=== PATIENT | female | born 1995 | race Caucasian/White ===

== ENCOUNTER 2022-06-25 11:50 | Emergency (ER) | payer OTHER, SELFPAY ==
[2022-06-25 11:55] VITALS: BP 119/66; PULSE 107; RESP 18; TEMP 36.1; O2SAT 100
[2022-06-25 12:15] LABS: Basophils Percent Auto 0.5 % (0.2-1.2); Eosinophils Percent Auto 0.5 % (0-4.4); Hematocrit 28.5 % (37.0-47.0); Hemoglobin 10.8 g/dL (12.0-15.0); Immature Granulocyte Absolute 0.03 K/mm3 (0.00-0.031); Immature Granulocyte Percent A 0.5 % (0-0.5); Lymphocytes Absolute Auto 0.55 K/mm3 (0.9-3.2); Lymphocytes Percent Auto 9.3 % (18.3-44.2); Mean Corpuscular HGB Conc 37.9 g/dl (32-36); Mean Corpuscular Hemoglobin 33.5 pg (26-34); Mean Corpuscular Volume 88.5 fl (80-100); Mean Platelet Volume 9.2 fl (7.4-10.4); Monocytes Absolute Auto 0.3 K/mm3 (0.1-0.6); Monocytes Percent Auto 4.9 % (2.6-8.5); Neutrophils Percent Auto 84.3 % (45.5-73.1); Platelet Count Result 195 k/mm3 (150-375); Red Blood Count 3.22 M/mm3 (4.2-5.4); Red Cell Distribution Width 14.1 % (11.5-14.5); White Blood Count 5.9 K/mm3 (4.5-10.0)
[2022-06-25 12:26] LABS: Alanine Aminotransferase 15 U/L (6-35); Albumin Level 4.3 g/dL (3.5-5.1); Alkaline Phosphatase 51 U/L (38-126); Anion Gap 9 mmol/L (8-16); Aspartate Amino Transferase 18 U/L (14-36); Bilirubin,Total 1.7 mg/dL (0.2-1.3); Blood Urea Nitrogen 7 mg/dL (7-17); Carbon Dioxide 22 mmol/L (22-30); Chloride 103 mmol/L (98-107); Estimated CRCL calculation 133 ml/min; Estimated Glomerular Filt Rate > 60; Glucose 103 mg/dL (65-110); Lipase 35 U/L (23-300); Potassium 3.6 mmol/L (3.4-5.0); Sodium 134 mmol/L (137-145)
[2022-06-25 12:32] LABS: Add Urine Microscopic? YES; Appearance Urine Cloudy (Clear); Bilirubin Urine 2+ (Negative); Blood Urine Trace-lysed (Negative); Color Urine Orange (Yellow); Glucose Urine UA Negative (Negative); Ketones Urine 2+ mg/dL (Negative); Leukocyte Esterase Ur Negative LEU/UL (Negative); Nitrate Urine Positive (Negative); Protein Urine 1+ mg/dL (Negative); Specific Grav Ur 1.025 (1.001-1.035); pH Urine 5.5 (5.0-9.0)
[2022-06-25 12:43] LABS: Bacteria Urine 2+ /hpf; Mucus Urine Heavy /lpf; Squamous Epithelial Cell Urine Many /hpf (Few)
[2022-06-25] MEDS: SODIUM CHLORIDE 0.9% IV 1,000 ML 999 ML IV CONT (13:59)
[2022-06-25] MEDS: diphenhydrAMINE HCl INJ 50 MG/ML VIAL 25 MG IV PUSH (13:59)
[2022-06-25] MEDS: METOCLOPRAMIDE HCL INJ 10 MG/2 ML VIAL IV PUSH (14:00)
--- NOTE | 2022-06-25 14:11 | ED.NAVMDI ---
HPI - Nausea/Vomiting/Diarrhea General Chief complaint: Nausea/Vomiting/Diarrhea Stated complaint: 11 weeks , N/V Time Seen by Provider: 06/25/22 13:46 History of Present Illness HPI Narrative: 26-year-old female who is 11 weeks presents to the emergency room for evaluation of nausea vomiting for 4 weeks. Patient states the vomiting has worsened in the last 3 days. Has been on Compazine and Zofran with little relief of symptoms. Patient is a . States emesis is nonbloody and none bilious. Denies diarrhea constipation. Denies fevers. Reports abdominal cramping that is associated with vomiting. Related Data Home Medications Medication Instructions Recorded Confirmed ondansetron 4 mg disintegrating mg 06/25/22 06/25/22 tablet promethazine 25 mg tablet mg 06/25/22 Allergies Allergy/AdvReac Type Severity Reaction Status Date / Time Sulfa (Sulfonamide Allergy Unknown Verified 11/22/11 07:49 Antibiotics) Review of Systems Review of Systems: CONSTITUTIONAL: Denies fever, chills, or sweats. EYES: Denies visual changes, redness, or discharge. ENT: Denies rhinorrhea, congestion, sore throat, or otalgia. CARDIOVASCULAR: Denies chest pain, palpitations, or edema. RESPIRATORY: Denies cough or dyspnea. GASTROINTESTINAL: Denies abdominal pain, nausea, vomiting, or diarrhea. GENITOURINARY: Denies dysuria or hematuria. SKIN: Denies rash or itching. MUSCULOSKELETAL: Denies back pain, joint pain, or myalgia. NEUROLOGIC: Denies headache, numbness, dizziness, or weakness. PSYCHIATRIC: Denies anxiety or depression. PMFSH Family History Family History Grandparent Diabetes mellitus Social History Social History Smoking status: Never smoker Second hand tobacco smoke exposure: Yes Alcohol intake: never Exam Narrative: GENERAL: Well-appearing, well-nourished, no physical limitations, and in no acute distress. HEAD: Normocephalic, atraumatic. EYES: Conjunctivae normal, PERRLA and EOMI. ENT: Mucous membranes dry. CHEST: Clear to auscultation. No respiratory distress. No wheezes rales or rhonchi. No tenderness. ABDOMEN: Soft, nontender, nondistended, normal active bowel sounds. BACK: No CVA tenderness EXTREMITIES: Normal range of motion. No edema. No clubbing or cyanosis SKIN: Warm, dry, no rash. No noted wounds NEURO: No focal deficits. Alert and oriented x3. MAEW. CN's II-XI intact bilaterally, normal gait PSYCH: Cooperative. Normal mood and affect. Course Vital Signs Vital signs: Vital Signs Temperature 36.1 C L 06/25/22 11:55 Pulse Rate 107 H 06/25/22 11:55 Respiratory Rate 18 06/25/22 11:55 Blood Pressure 119/66 06/25/22 11:55 Pulse Oximetry 100 06/25/22 11:55 Oxygen Delivery Room Air 06/25/22 11:55 Temperature 36.1 C L 06/25/22 11:55 Pulse Rate 107 H 06/25/22 11:55 Respiratory Rate 18 06/25/22 11:55 Blood Pressure 119/66 06/25/22 11:55 Pulse Oximetry 100 06/25/22 11:55 Oxygen Delivery Room Air 06/25/22 11:55 MDM - Nausea/Vomiting/Diarrhea Lab Data Result diagrams: 06/25/22 11:59 06/25/22 11:59 Labs: Lab Results 06/25/22 06/25/22 06/25/22 Range/Units 11:59 11:59 12:04 WBC 5.9 (4.5-10.0) K/mm3 RBC 3.22 L (4.2-5.4) M/mm3 Hgb 10.8 L (12.0-15.0) g/dL Hct 28.5 L (37.0-47.0) % MCV 88.5 (80-100) fl MCH 33.5 (26-34) pg MCHC 37.9 H (32-36) g/dl RDW 14.1 (11.5-14.5) % Plt Count 195 (150-375) k/mm3 MPV 9.2 (7.4-10.4) fl Immature Gran % (Auto) 0.5 (0-0.5) % Neut % (Auto) 84.3 H (45.5-73.1) % Lymph % (Auto) 9.3 L (18.3-44.2) % [place] % (Auto) 4.9 (2.6-8.5) % Eos % (Auto) 0.5 (0-4.4) % Baso % (Auto) 0.5 (0.2-1.2) % Lymph # (Auto) 0.55 L (0.9-3.2) K/mm3 [place] # (Auto) 0.3 (0.1-0.6) K/mm3 Eos # (Auto) 0.0 (0
[2022-06-25 15:14] VITALS: BP 116/64; PULSE 98; RESP 16; O2SAT 100
== END 2022-06-25 15:15 | disposition home or self-care (01) ==
PROVIDERS: Emergency Medicine; Emergency Provider Nurse Practitioner Family
DX: O21.0 Mild hyperemesis gravidarum (principal); Z3A.11 11 weeks gestation of pregnancy; O23.41 Unspecified infection of urinary tract in pregnancy, first trimester; N39.0 Urinary tract infection, site not specified
CPT/HCPCS: 36415; 80053; 81001; 83690; 85025; 96361; 96365; 96375; 99284; J0696; J1200; J2765; J7030

== ENCOUNTER 2023-01-10 16:35 | Outpatient (CLI) | payer OTHER, SELFPAY ==
[2023-01-10 17:08] LABS: Basophils Percent Auto 0.5 % (0.2-1.2); Eosinophils Absolute Auto 0.1 K/mm3 (0-0.3); Eosinophils Percent Auto 0.6 % (0-4.4); Hematocrit 30.1 % (37.0-47.0); Hemoglobin 10.7 g/dL (12.0-15.0); Immature Granulocyte Absolute 0.05 K/mm3 (0.00-0.031); Immature Granulocyte Percent A 0.6 % (0-0.5); Lymphocytes Absolute Auto 0.78 K/mm3 (0.9-3.2); Lymphocytes Percent Auto 10.1 % (18.3-44.2); Mean Corpuscular HGB Conc 35.5 g/dl (32-36); Mean Corpuscular Hemoglobin 34.6 pg (26-34); Mean Corpuscular Volume 97.4 fl (80-100); Mean Platelet Volume 9.5 fl (7.4-10.4); Monocytes Absolute Auto 0.5 K/mm3 (0.1-0.6); Neutrophils Absolute Auto 6.3 K/mm3 (1.3-6.7); Neutrophils Percent Auto 82.2 % (45.5-73.1); Platelet Count Result 161 k/mm3 (150-375); Red Blood Count 3.09 M/mm3 (4.2-5.4); Red Cell Distribution Width 15.9 % (11.5-14.5); White Blood Count 7.7 K/mm3 (4.5-10.0)
[2023-01-11 11:21] LABS: Rapid Plasma Reagin Non-Reactive (NonReactive)
== END 2023-01-10 16:36 | disposition home or self-care (01) ==
LOC: ANHLAB 16:39
PROVIDERS: Visit Provider Obstetrics & Gynecology
DX: Z34.93 Encounter for supervision of normal pregnancy, unspecified, third trimester (principal); Z3A.00 Weeks of gestation of pregnancy not specified
CPT/HCPCS: 36415; 85025; 85461; 86592; 86850; 86900; 86901

== ENCOUNTER 2023-01-11 04:59 | Inpatient (IN) | payer OTHER, SELFPAY ==
--- NOTE | 2022-12-18 15:51 | PC.NURSE ---
verified with OR schedule and patient--C/S on 01/11/23 @ [id number] Patient given requisition for lab draw on 01/10/23
[2023-01-11] VITALS (44 sets, daily range): BP systolic 71–113; BP diastolic 50–93; PULSE 64–131; RESP 14–18; TEMP 36.4–36.6; O2SAT 96–100; BMI 26.9
--- NOTE | 2023-01-11 04:42 | P.PNAN_ITS ---
Anes - Eval Pre Procedure Procedure: Operation Date: 01/11/23 07:30 Proposed Procedures p Section - Vernell Sharma MD Date/Time: 01/11/23 04:42 Surgeon: Zachary Preop Diagnosis: Previous c section Pre Op Diagnosis: C/S Patient Data Age: 27 Gender: F Height: Weight: Allergies Allergy/AdvReac Type Severity Reaction Status Date / Time Sulfa (Sulfonamide Allergy Unknown Verified 11/22/11 07:49 Antibiotics) Home Medications Medication Instructions Recorded Confirmed Type cephalexin 500 mg capsule 500 mg PO Q12H 7 days #14 caps 06/25/22 Rx ondansetron 4 mg disintegrating mg 06/25/22 06/25/22 History tablet promethazine 25 mg tablet mg 06/25/22 History Patient hx anesthesia problems: none Family hx anesthesia problems: none Results Review: All pre-operative results and documents have been reviewed as part of the pre- operative evaluation. FORMERLY [facility] Past Medical History Medical History Cannabis abuse and not yet delivered Surgical History Surgical History Previous section Family History Family History Grandparent Diabetes mellitus Social History Social History Smoking status: Never smoker Second hand tobacco smoke exposure: Yes Alcohol intake: never Substance use: current Lack of Transportation: No Lack of Food: Never True Current Housing: I Have Housing Concerned About Future Housing: No Difficulty Paying Gas/Electric Bills: No Difficulty Paying for Meds: No Currently Unemployed: YES Education: High School Diploma/GED Difficulty w/ Childcare or Family Care: No Spiritual care concerns: No Exam Day of Procedure 01/11/23 04:42 Patient weight: overweight Heart: regular rate and rhythm Lungs: clear to auscultation Airway: Mallampati scale class II
--- NOTE | 2023-01-11 05:22 | LDADM ---
This patient, Yvonne Rodriguez, was admitted to Labor/Delivery/Recovery 120 on 01/11/23 at 04:59. Plans for labor, pain management and were discussed with patient. Patient/family oriented to hospital policies and general routines including ID bracelet, bed and alarms, visiting hours, pain management, procedures, bathroom and other care routines, personal items, smoking policy, room service/diet and guest tray routines, security routines, and visiting hours. Patient/Family are encouraged to report perceived risks to care and to ask questions if they do not understand what they are told or what they should do. See OBIX for further documentation.
[2023-01-11] MEDS: LACTATED RINGERS 1,000 ML 125 ML IV CONT (05:31)
--- NOTE | 2023-01-11 06:52 | PM.IMHP ---
H&P: HPI History of Present Illness Date/Time: 01/11/23 06:52 Chief Complaint: R CS Narrative: Yvonne is a 27yo at 39.1 for Repeat Cs. This has been complicated by IUGR, normal fluid, dopplers, and testing. GBS pos. some anemia. Feels well today, no complaints. Review of Systems Review of Systems: All systems reviewed & are unremarkable except as noted in HPI and below PMFSH Past Medical History Medical History Cannabis abuse and not yet delivered Surgical History Surgical History Previous section Family History Family History Grandparent Diabetes mellitus Social History Social History Smoking status: Never smoker Second hand tobacco smoke exposure: Yes Alcohol intake: never Substance use: current Lack of Transportation: No Lack of Food: Never True Current Housing: I Have Housing Concerned About Future Housing: No Difficulty Paying Gas/Electric Bills: No Difficulty Paying for Meds: No Currently Unemployed: YES Education: High School Diploma/GED Difficulty w/ Childcare or Family Care: No Spiritual care concerns: No Meds Home Medications and Allergies Home Medications Medication Instructions Recorded Confirmed Type cephalexin 500 mg capsule 500 mg PO Q12H 7 days #14 caps 06/25/22 Rx ondansetron 4 mg disintegrating mg 06/25/22 06/25/22 History tablet promethazine 25 mg tablet mg 06/25/22 History Allergies Allergy/AdvReac Type Severity Reaction Status Date / Time Sulfa (Sulfonamide Allergy Unknown Verified 11/22/11 07:49 Antibiotics) Vital Signs Vital Signs - 24 hr 01/11/23 05:16 01/11/23 05:31 01/11/23 05:46 Pulse Rate 93 86 84 Blood Pressure 108/72 113/66 94/53 L 01/11/23 06:01 01/11/23 06:16 Pulse Rate 93 81 Blood Pressure 71/52 L 111/63 Exam Const: General: no acute distress Resp: Effort & Inspection: normal respiratory effort Auscultation: clear to auscultation bilaterally Cardio: Rate: regular rate Rhythm: regular rhythm GI: GI Palp: Yes Soft to palpation Extrem: General: normal to inspection Assessment and Plan Assessment and plan (1) History of delivery: Code(s): Z98.891 - History of uterine scar from previous surgery Status: Acute (2) IUGR (intrauterine growth restriction): Status: Acute Plan consented for repeat CS fht category 1 IUGR with reassuring testing throughout will proceed
--- NOTE | 2023-01-11 06:55 | WPDHPUPDATE1 ---
History and Physical Update Update Date/Time: 01/11/23 06:55 History and Physical has been reviewed, including an updated exam of the patient. There are NO changes in the patient's condition. Risks, benefits, and alternatives have been discussed and questions answered. Patient agrees to proceed with procedure.
[2023-01-11] MEDS: LACTATED RINGERS 1,000 ML 999 ML IV CONT (07:00)
--- NOTE | 2023-01-11 07:01 | WPDANESEPPF ---
Anes - Initial Pre Proc Eval Procedure: Operation Date: 01/11/23 07:30 Proposed Procedures p Section - Vernell Sharma MD Date/Time: 01/11/23 07:01 Surgeon: Vernell Sharma MD Pre Op Diagnosis: C/S Patient Data Age: 27 Gender: F Height: 1.7 m Weight: 78 kg Last Vital Signs Pulse 81 01/11/23 06:16 BP 111/63 01/11/23 06:16 Allergies Allergy/AdvReac Type Severity Reaction Status Date / Time Sulfa (Sulfonamide Allergy Unknown Verified 11/22/11 07:49 Antibiotics) Home Medications Medication Instructions Recorded Confirmed Type cephalexin 500 mg capsule 500 mg PO Q12H 7 days #14 caps 06/25/22 Rx ondansetron 4 mg disintegrating mg 06/25/22 06/25/22 History tablet promethazine 25 mg tablet mg 06/25/22 History Patient hx anesthesia problems: none Family hx anesthesia problems: none Results Review: All pre-operative results and documents have been reviewed as part of the pre-operative evaluation. [facility] Past Medical History Medical History Cannabis abuse and not yet delivered Surgical History Surgical History Previous section Family History Family History Grandparent Diabetes mellitus Social History Social History Smoking status: Never smoker Second hand tobacco smoke exposure: Yes Alcohol intake: never Substance use: current Lack of Transportation: No Lack of Food: Never True Current Housing: I Have Housing Concerned About Future Housing: No Difficulty Paying Gas/Electric Bills: No Difficulty Paying for Meds: No Currently Unemployed: YES Education: High School Diploma/GED Difficulty w/ Childcare or Family Care: No Spiritual care concerns: No Anes - Eval Final PreProcedure Day of Procedure 01/11/23 07:01 Patient weight: overweight Heart: regular rate and rhythm Lungs: clear to auscultation and normal air movement Airway: Mallampati scale class II Neurological: alert and oriented Last oral intake: >/= 8 hours ASA classification: II Emergent: no Anesthetic plan: proceed Anesthesia type and monitoring: regional spinal Results Review: All pre-operative results and documents have been reviewed as part of the pre-operative evaluation. Informed Consent: The patient's anesthetic plan and its attendant risks and benefits were discussed with the patient/family/POA. Questions were solicited and answers provided to the satisfaction of the patient/family/POA.
[2023-01-11] MEDS: ceFAZolin 2 GM/D5W 50 ML 2 GM/50 ML BAG IVPB (07:04)
--- NOTE | 2023-01-11 08:09 | PM.OBPRVD ---
OB - Delivery Note Procedure Delivery date: 01/11/23 Procedure: Procedures Operation Date: 01/11/23 07:30 <No data on this case meets the specified criteria> repeat low transverse section Events: Breech Presentation, Intrauterine Growth Restriction (IUGR) and Previous Delivery Route of delivery: Specimen: Yes (placenta) Quantitative Blood Loss (ml): 350 Anesthesia type: Spinal Disposition: Floor Complications: none Narrative: The patient was taken to the OR and received spinal anesthesia. She was placed in dorsal supine position with left lateral tilt. SCDs and burks were placed. She was prepped and draped in the normal sterile fashion. A Pfannensteil skin incision was made and carried through to the underlying layer of fascia. The fascia was incised in the midline and then extended laterally using Mejía scissors. The muscles were in the midline and the peritoneum was entered bluntly. The peritoneal incision was extended inferiorly and superiorly with care to avoid the bladder. The bladder blade was then inserted, the vesicouterine peritoneum was grasped, incised with Metzenbaum scissors, and a bladder flap created. The bladder blade was reinserted. A low transverse uterine incision was made with a scalpel and extended bluntly. AROM was performed and fluid was noted to be clear. The baby was delivered easily from breech presentation in normal fashion. The baby's oropharynx was suctioned. After 30 seconds, the cord was clamped and cut and the was handed off. Cord blood was obtained and the placenta was then removed manually. The uterus was exteriorized. A moist lap sponge was used to curette the endometrium. The uterine incision was then closed with one layer of 0-Vicryl in a running, locking fashion. Good hemostasis was noted. The posterior cul de sac was irrigated with normal saline and cleared of all clot and debris. The uterus was returned to the abdomen. Both lateral gutters were then irrigated. The rectus muscles were inspected and found to be hemostatic. The fascia was reapproximated using 0-Vicryl in running fashion. The subcutaneous tissue was irrigated with normal saline and made hemostatic with Bovie electrocautery. The skin was then closed with reabsorbable lauryn. Steri strips and a bandage were applied. The uterus was evacuated. The patient tolerated the procedure very well. All counts were correct. She was taken to the recovery room in good condition. Baby Date of : 01/11/23 Time of : 07:34 Weeks of gestation at delivery: 39 Infant gender: Female Weight (pounds): 5 Weight (ounces): 14 presentation: breech Placenta delivery description: Manual Removal Cord Vessel Description: 3 Vessels and Delayed Cord Clamping score one minute: 9 score five minutes: 9
[2023-01-11] MEDS: ONDANSETRON INJ 4 MG/2 ML VIAL IV PUSH ×2 (08:55→10:50)
[2023-01-11] MEDS: OXYTOCIN 30 UNITS/NS 500 ML 30 UNITS/500 ML BAG 125 UNITS IV CONT (09:15)
[2023-01-11] MEDS: LIDOCAINE 5% PATCH 1 PATCH TRANSDERM (09:31)
[2023-01-11] MEDS: MORPHINE SULFATE INJ (*CRX) 10 MG/ML AMP 2 MG IV PUSH ×3 (09:36→10:09)
[2023-01-11] MEDS: KETOROLAC 30 MG/ML VIAL (*BKC) IV PUSH (10:50)
--- NOTE | 2023-01-11 16:01 | PC.NURSE ---
[id number] Introductions were made, then consulted with patient to assess needs related to . Mother led the conversation with her?plans to feed?her infant and the?experience so far. Primary RN is present assisting mother with hand expression. Mother consents for assistance with RN. We practiced hand expression and fed the the drops of colostrum. Mother works well with her with encouragement and education. Encouraged understanding of the benefits of skin to skin (demonstrating unwrapping and placing upright on her chest), stimulating with massage touch, changing positions to encourage wakefulness, how to watch for early feeding cues, responsive feeding, feeding on demand (aiming for 8-12 times in 24 hours, about every 2-3 hours), milk production, building/maintaining a milk supply, duration of feeding, signs of adequate intake/output and how to record on the feeding sheet. Reviewed positioning and ear, shoulder, hip alignment, supporting the breast to facilitate a deep latch, asymmetrical latch (off-center), leading with the chin with a big, open, wide gape and body close to mother. Infant latched optimally to the left breast in football position. Education given to mother of how to visualize suck/swallow ratios and listen for drinking at the breast. Infant was able to maintain latch without discomfort to mother. Nipple care reviewed with optimal latch and good positioning. Reviewed good handwashing when or touching the breast/nipples to prevent infection. Resources used to facilitate learning were used with the tool, mom and baby guide. Mother voiced understanding of skin to skin, stimulating with massage touch, responsive feedings, hand expressed colostrum, talking to to encourage if it has been 2 -2.5 hours since the start of the last , to call if does not latch, or if there is discomfort with . Resources provided for inpatient/outpatient with the feeding sheet and the mom/baby guide. Parents voiced understanding of information, demonstrated learning and will call if there is a request for assistance. Resources provided for inpatient and outpatient services with the feeding sheet, mom/baby guide and name written on the white board. Reported to the primary RN.
[2023-01-11] MEDS: HYDROcodone/acetaminophen (*CRX) 5-325 MG TABLET 1 TAB PO ×2 (17:08→21:00)
[2023-01-11] MEDS: DEXTROSE 5%/0.45% SOD CHL 1,000 ML 125 ML IV CONT (17:09)
[2023-01-11] MEDS: IBUPROFEN 600 MG TABLET PO (21:00)
[2023-01-12 04:10] VITALS: BP 102/59; PULSE 76; RESP 16; TEMP 36.9; O2SAT 99
[2023-01-12] MEDS: HYDROcodone/acetaminophen (*CRX) 10-325 MG TABLET 1 TAB PO ×6 (04:10→22:20)
[2023-01-12] MEDS: IBUPROFEN 600 MG TABLET PO ×4 (04:10→22:20)
[2023-01-12 05:30] LABS: Basophils Percent Auto 0.6 % (0.2-1.2); Eosinophils Absolute Auto 0.1 K/mm3 (0-0.3); Eosinophils Percent Auto 1.2 % (0-4.4); Hematocrit 26.3 % (37.0-47.0); Hemoglobin 9.3 g/dL (12.0-15.0); Immature Granulocyte Absolute 0.06 K/mm3 (0.00-0.031); Immature Granulocyte Percent A 0.9 % (0-0.5); Lymphocytes Absolute Auto 0.89 K/mm3 (0.9-3.2); Lymphocytes Percent Auto 12.8 % (18.3-44.2); Mean Corpuscular HGB Conc 35.4 g/dl (32-36); Mean Corpuscular Hemoglobin 35.1 pg (26-34); Mean Corpuscular Volume 99.2 fl (80-100); Mean Platelet Volume 9.7 fl (7.4-10.4); Monocytes Absolute Auto 0.5 K/mm3 (0.1-0.6); Monocytes Percent Auto 6.6 % (2.6-8.5); Neutrophils Absolute Auto 5.4 K/mm3 (1.3-6.7); Neutrophils Percent Auto 77.9 % (45.5-73.1); Platelet Count Result 120 k/mm3 (150-375); Red Blood Count 2.65 M/mm3 (4.2-5.4); Red Cell Distribution Width 15.8 % (11.5-14.5)
[2023-01-12] MEDS: DOCUSATE SODIUM 100 MG CAPSULE PO ×2 (08:48→17:09)
[2023-01-12] MEDS: POLYSACCHARIDE IRON COMPLEX 150 MG CAPSULE PO ×2 (08:48→19:25)
[2023-01-12] MEDS: MULTIVIT/MIN/PREN/FOL AC/IRON TABLET 1 TAB PO (09:00)
[2023-01-12] MEDS: LIDOCAINE 5% PATCH 1 PATCH TRANSDERM (09:48)
[2023-01-12] MEDS: SIMETHICONE 80 MG TAB.CHEW PO ×2 (09:48→16:08)
--- NOTE | 2023-01-12 10:45 | P.PNOB_ITS ---
OB - PN: Subj Subjective Date/time seen: 01/12/23 10:45 Patient comments: no complaints, pain well controlled, tolerating diet and flatus present OB - PN: Obj Data Labs 01/12/23 04:51 Labs: Laboratory Results - last 24 hr 01/12/23 04:51 WBC 7.0 RBC 2.65 L Hgb 9.3 L Hct 26.3 L MCV 99.2 MCH 35.1 H MCHC 35.4 RDW 15.8 H Plt Count 120 L MPV 9.7 Immature Gran % (Auto) 0.9 H Neut % (Auto) 77.9 H Lymph % (Auto) 12.8 L [place] % (Auto) 6.6 Eos % (Auto) 1.2 Baso % (Auto) 0.6 Lymph # (Auto) 0.89 L [place] # (Auto) 0.5 Eos # (Auto) 0.1 Baso # (Auto) 0.0 Abs Immat Gran (auto) 0.06 H Absolute Neuts (auto) 5.4 Absolute Nucleated RBC 0.0 Nucleated RBC % 0.0 OB - PN A/P Plan day: 1 Comments: Post Op LTCS - no problems, routine recovery Time Spent With Patient Time: Total time spent is greater than 50% in coordination of care (as documented) at patient's floor/unit and/or counseling patient: Exam Const: General: cooperative, healthy appearing, comfortable and no acute distress Resp: Auscultation: no crackles, no rales, no rhonchi and no wheezes Cardio: Rhythm: regular rhythm Heart sounds: no click and no murmurs GI: Inspection: non-distended Auscultation: normal bowel sounds Extrem: General: normal to inspection, no pedal edema and no calf tenderness
--- NOTE | 2023-01-12 16:53 | WPDANLDPN2 ---
Anes-Prog Note L&D Date/Time: 01/12/23 16:53 Comfortable throughout: section Neuraxial method: spinal Epidural/Spinal procedure site: tender Neuro status: Neuro function grossly intact. Cardiovascular status: normal Respiratory status: normal Airway patency: baseline Mental status: baseline Post-Op hydration status: normal Vital Signs: Last Vital Signs Temp 36.9 C 01/12/23 04:10 Pulse 76 01/12/23 04:10 Resp 16 01/12/23 04:10 BP 102/59 L 01/12/23 04:10 Pulse Ox 99 01/12/23 04:10 O2 Del Method Room Air 01/12/23 04:10 Pain score (VAS): 5/10 I/O: Intake & Output 01/12/23 01/12/23 01/12/23 07:59 15:59 23:59 Intake Total 3000 Output Total 3200 Balance -200 Post-procedural complaints: none Patient feedback: Patient satisfied with anesthetic care.
--- NOTE | 2023-01-12 16:54 | WPDANLDNPN2 ---
Anes-Prog Note L&D-Neuraxial Date/Time: 01/12/23 16:54 Neuraxial medications: intrathecal PF morphine Opiod-related complaints: nausea (resolved today) Patient feedback: Patient satisfied with post-operative pain management.
[2023-01-12 19:30] VITALS: BP 99/61; PULSE 87; RESP 16; TEMP 36.8; O2SAT 99
[2023-01-13] MEDS: HYDROcodone/acetaminophen (*CRX) 5-325 MG TABLET 1 TAB PO (02:05)
[2023-01-13] MEDS: IBUPROFEN 600 MG TABLET PO ×4 (05:40→23:00)
[2023-01-13] MEDS: HYDROcodone/acetaminophen (*CRX) 10-325 MG TABLET 1 TAB PO ×7 (05:40→23:01)
[2023-01-13 08:40] VITALS: BP 101/59; PULSE 81; RESP 16; TEMP 36.4; O2SAT 100
[2023-01-13] MEDS: MULTIVIT/MIN/PREN/FOL AC/IRON TABLET 1 TAB PO (08:40)
[2023-01-13] MEDS: POLYSACCHARIDE IRON COMPLEX 150 MG CAPSULE PO ×2 (08:40→15:07)
[2023-01-13] MEDS: SIMETHICONE 80 MG TAB.CHEW PO (08:40)
[2023-01-13] MEDS: DOCUSATE SODIUM 100 MG CAPSULE PO ×2 (08:40→15:08)
[2023-01-13] MEDS: LIDOCAINE 5% PATCH 1 PATCH TRANSDERM (10:19)
--- NOTE | 2023-01-13 10:46 | PM.OBPNVD ---
OB - PN: Subj Subjective Date/time seen: 01/13/23 10:46 Patient comments: no complaints, pain well controlled, incisional pain, tolerating diet and flatus present OB - PN: Obj Data Labs 01/12/23 04:51 OB - PN A/P Plan day: 2 Plan: routine care Comments: POD#2 LTCS - no problems, Time Spent With Patient Time: Total time spent is greater than 50% in coordination of care (as documented) at patient's floor/unit and/or counseling patient: Exam Const: General: comfortable, no acute distress and alert Resp: Effort & Inspection: normal respiratory effort Auscultation: no crackles, no rales and no rhonchi Cardio: Rate: regular rate Heart sounds: no click, no murmurs and no rubs GI: Inspection: non-distended GI Palp: No Tenderness to palpation present (GI) Auscultation: normal bowel sounds Other: Incision - CDI Extrem: General: normal to inspection, no pedal edema and no calf tenderness
[2023-01-13 19:20] VITALS: BP 107/57; PULSE 81; RESP 18; TEMP 36.4; O2SAT 100
[2023-01-14] MEDS: HYDROcodone/acetaminophen (*CRX) 10-325 MG TABLET 1 TAB PO ×2 (02:32→05:39)
[2023-01-14] MEDS: IBUPROFEN 600 MG TABLET PO (05:38)
[2023-01-14 07:35] VITALS: BP 107/76; PULSE 88; RESP 16; TEMP 36.7; O2SAT 100
--- NOTE | 2023-01-14 08:35 | PM.OBPNVD ---
OB - PN: Subj Subjective Date/time seen: 01/14/23 08:35 Patient comments: no complaints and incisional pain baby status: doing well and nursing well Narrative: ready for DC home today OB - PN: Obj Data Labs 01/12/23 04:51 OB - PN A/P Plan day: 3 Plan: routine care and discharge home Time Spent With Patient Time: Total time spent is greater than 50% in coordination of care (as documented) at patient's floor/unit and/or counseling patient: Exam Narrative: NAD abdomen soft, appropriately tender, incision CDI Extremities nontender with 1+ edema
--- NOTE | 2023-01-14 08:39 | PM.OBDSVD ---
DS: Admitting Diagnosis Discharge Date 01/14/23 Admitting Diagnosis previous section DS: Discharge Diagnosis Discharge Diagnosis (1) delivery delivered: Code(s): O82 - Encounter for delivery without indication Status: Acute OB - DS: Summary Hospital Course Hospital Course: Yvonne was admitted for a repeat section at 39w with IUGR. She proceeded to have an uncomplicated delivery and course and was discharged home on POD 3. OB Procedures : NST and Ultrasound OB Procedures Intrapartum: OB Procedures: : None Peripartum Data Infant Delivery Method: Section Procedures: Procedures Operation Date: 01/11/23 07:30 Actual Procedure Side Surgeon R Section Vernell Sharma MD complications: none Status at Discharge Functional status at discharge: independent ambulation Time Spent with Patient Time attestation: Total time spent providing and/or coordinating discharge services: Exam Narrative: NAD abdomen soft, appropriately tender, incision CDI DS: Data Data Completed and Pending Pending studies at discharge: Pending at discharge 01/11/23 08:24 Surgical [PTH] Routine Discharge Plan Discharge Attending physician on discharge: Vernell Sharma Discharging Clinician: Vernell Sharma Anticipated Discharge Date/Time: 01/14/23 08:36 Patient Disposition: Home, Self-Care Activity: may shower, may drive after 2 weeks and pelvic rest Diet: regular Patient Instructions: Antibiotic Form Stand Alone Forms: General Discharge Information Follow-up/Referrals: Vernell Sharma MD [Physician] - 1 Week Discharge Medications: New oxycodone-acetaminophen [Percocet] 5-325 mg tablet 1 tablet PO Q4H PRN (Reason: pain) Qty: 40 0RF docusate sodium 100 mg Capsule 100 mg PO BID PRN (Reason: Constipation) Qty: 60 0RF ibuprofen 600 mg Tablet 600 mg PO Q6H PRN (Reason: Cramping) Qty: 60 0RF Discontinued promethazine 25 mg tablet ondansetron [Zofran ODT] 4 mg Tablet,Disintegrating cephalexin 500 mg capsule 500 mg PO Q12H 7 Days Qty: 14 0RF Date of admission: 01/11/23 04:59 Primary Care Provider: UNKNOWN,DOCTOR Admitting Provider: Vernell Sharma Attending physician on admission: Vernell Sharma Condition: Stable
[2023-01-14] MEDS: HYDROcodone/acetaminophen (*CRX) 5-325 MG TABLET 1 TAB PO (08:41)
[2023-01-14] MEDS: MULTIVIT/MIN/PREN/FOL AC/IRON TABLET 1 TAB PO (08:41)
[2023-01-14] MEDS: POLYSACCHARIDE IRON COMPLEX 150 MG CAPSULE PO (08:41)
[2023-01-14] MEDS: DOCUSATE SODIUM 100 MG CAPSULE PO (08:41)
[2023-01-14] MEDS: LIDOCAINE 5% PATCH 1 PATCH TRANSDERM (08:42)
--- NOTE | 2023-01-14 13:41 | PC.NURSE ---
[id number] Mother led the conversation with her experience and plan to feed her so far and her ability to independently latch optimally without discomfort, pumping if infant doesn't breastfeed to protect the milk supply, and supplement as needed to feed infant. Reminded parents to use good handwashing technique to prevent infection. Mother is feeding appropriately for growth of infant and understands stimulating infant to eat if needed. Infant has had appropriate feedings in the last 24 hours meets the outcomes for weight, output and jaundice at this time. Mother states she is confident to continue feeding her infant at home, when to call for assistance and denies any additional assistance or education at this time. Reinforced understanding of milk production, transition of milk, signs of adequate intake, transition of stool, prevention/relief of engorgement, responsive watching for feeding cues, the different methods of stimulating to breastfeed 2-3 hours after the start of the last feeding, community resources, medication information reviewed per [facility] and when to call a provider using the resource of the mom and baby guide. Mother voiced understanding of the education shared.
[2023-01-16 14:15] VITALS: BP 118/62; PULSE 76; RESP 18; TEMP 37; O2SAT 100
== END 2023-01-14 11:02 | disposition home or self-care (01) | DRG 540 ==
LOC: ANHLDR 05:02 → ANHOB2 10:33
PROVIDERS: Admitting Provider Obstetrics & Gynecology; Visit Provider Obstetrics & Gynecology
PROC: 10D00Z1 Extraction of Products of Conception, Low, Open Approach (ICD-10-PCS; CPT 59514; principal; 2023-01-11 07:30)
DX: O34.211 Maternal care for low transverse scar from previous cesarean delivery (principal); O36.5930 Maternal care for other known or suspected poor fetal growth, third trimester, not applicable or unspecified; D64.9 Anemia, unspecified; Z37.0 Single live birth; Z3A.39 39 weeks gestation of pregnancy; O99.824 Streptococcus B carrier state complicating childbirth; O99.02 Anemia complicating childbirth; O32.1XX0 Maternal care for breech presentation, not applicable or unspecified
CPT/HCPCS: 36415; 85025; 88307; A9270; J0131; J0690; J1885; J2270; J2274; J2405; J2590; J3010; J7120